=== PATIENT | male | born 1950 | race Caucasian/White ===

== ENCOUNTER 2017-09-22 18:27 | Emergency (ER) | payer MEDICARE ==
[2017-09-22 19:38] VITALS: BP 146/77
[2017-09-22] MEDS ORDERED: Lidocaine 2% PF * 5 ML VIAL INJ ONE (21:10)
[2017-09-22] MEDS ORDERED: Cephalexin CAP* 500 MG PO ONE (21:45)
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
== END 2017-09-22 22:19 | disposition home or self-care (01) ==
LOC: UCEAST 18:27
DX: S61.217A Laceration without foreign body of left little finger without damage to nail, initial encounter (principal); W29.8XXA Contact with other powered hand tools and household machinery, initial encounter; Y93.9 Activity, unspecified; Y92.9 Unspecified place or not applicable; F32.9 Major depressive disorder, single episode, unspecified; Z88.4 Allergy status to anesthetic agent; Z87.891 Personal history of nicotine dependence
CPT/HCPCS: 99212; A9270-GY; G0463

== ENCOUNTER 2017-10-03 07:04 | Emergency (ER) | payer MEDICARE ==
[2017-10-03 07:17] VITALS: BP 137/82
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
== END 2017-10-03 07:35 | disposition home or self-care (01) ==
LOC: UCEAST 07:04
DX: S61.217D Laceration without foreign body of left little finger without damage to nail, subsequent encounter (principal); W29.8XXD Contact with other powered hand tools and household machinery, subsequent encounter; R03.0 Elevated blood-pressure reading, without diagnosis of hypertension; Z88.4 Allergy status to anesthetic agent; Z87.891 Personal history of nicotine dependence
CPT/HCPCS: 99211; G0463

== ENCOUNTER 2020-03-29 05:58 | Observation (INO) ==
[~2020-03-29 05:58] MED LIST: Buffered Lidocaine 1% SYRIN 1 ml INTRADERM ONE; Lactated Ringers 1000 ml BAG 1,000 ML IV SCH
[2020-03-29] MEDS ORDERED: ceFAZolin 2 GM PREMIX 2 GM/50 ML BAG ONE (06:24)
[2020-03-29] MEDS ORDERED: Buffered Lidocaine 1% SYRIN 1 ml INTRADERM ONE (06:24)
[2020-03-29] MEDS ORDERED: Midazolam 2 mg/2 ml VIAL 1 mg/ml 2 ml VIAL (2 mg) ONE ×2 (06:55→07:31)
[2020-03-29] MEDS ORDERED: Phenylephrine 40 mcg/mL 10mL (400mcg) SYRINGE ONE (06:55)
[2020-03-29] MEDS ORDERED: Lidocaine 2% PF 5 ML VIAL ONE (06:55)
[2020-03-29] MEDS ORDERED: Bupivacaine 0.5% SDV PF 30ML VIAL ONE (07:19)
[2020-03-29] MEDS ORDERED: fentaNYL 100 mcg/2 ml 50 MCG/ML VIAL ONE (07:21)
[2020-03-29] MEDS ORDERED: Rocuronium 50 mg VIAL 10 mg/ml 5 ml VIAL (50 mg) ONE (07:27)
[2020-03-29] MEDS ORDERED: Naloxone 0.4 mg VIAL 0.4 mg/ml 1 ml VIAL IV PRN (08:29)
[2020-03-29] MEDS ORDERED: DiMENhydriNATE IV 50 mg/ml 1 ml VIAL IV PUSH PRN (08:29)
[2020-03-29] MEDS ORDERED: fentaNYL 100 mcg/2 ml 50 MCG/ML VIAL IV PRN (08:29)
[2020-03-29] MEDS ORDERED: oxyCODONE/Acetamin 5/325 mg TAB PO PRN (08:29)
[2020-03-29] MEDS ORDERED: HYDROmorphone 1 MG/1 ML SYRINGE IV PRN (08:29)
[2020-03-29] MEDS ORDERED: Ondansetron 4 mg VIAL 2 MG/ML 2 ml VIAL IV PRN ×2 (08:29→10:00)
[2020-03-29] MEDS ORDERED: Ondansetron 4 mg VIAL 2 MG/ML 2 ml VIAL ONE (09:12)
[2020-03-29] MEDS ORDERED: Acetaminophen IV 1 GM/100ML 100 ML ONE (09:12)
[2020-03-29] MEDS ORDERED: Dexamethasone IV 4 MG/ML VIAL 1 ml VIAL ONE ×2 (09:12)
[2020-03-29] MEDS ORDERED: diPHENhydraMINE 25 mg TAB PO PRN (10:00)
[2020-03-29] MEDS ORDERED: diPHENhydraMINE IV 50 MG/ML 1 ml VIAL (BENADRYL) IV PRN (10:00)
[2020-03-29] MEDS ORDERED: Morphine 2 MG/ML SYRINGE IV PRN (10:00)
[2020-03-29] MEDS ORDERED: Magnesium Hydroxide LIQ 30 ML UDC PO PRN (10:00)
[2020-03-29] MEDS ORDERED: Ondansetron ODT 4 mg TAB 4 MG TAB PO PRN (10:00)
[2020-03-29] MEDS ORDERED: Lactulose 30 ml UDC PO PRN (10:00)
[2020-03-29] MEDS ORDERED: oxyCODONE/Acetamin 5/325 mg TAB ONE (10:19)
[2020-03-29] MEDS: Lactated Ringers 1000 ml BAG 1,000 ML IV SCH ×2 (11:43→21:32)
[2020-03-29] MEDS: ceFAZolin 1 GM ADVAN 1 GM in NS 0.9% 50 ML 50 ML IVPB SCH ×2 (15:49→23:41)
[2020-03-29] MEDS: oxyCODONE/Acetamin 5/325 mg TAB PO PRN ×2 (16:55→21:29)
[2020-03-29] MEDS: Magnesium Hydroxide LIQ 30 ML UDC PO SCH (21:29)
[2020-03-30] MEDS: oxyCODONE/Acetamin 5/325 mg TAB PO PRN ×3 (03:17→12:01)
[2020-03-30 07:11] LABS: Hematocrit 37 % (42-52); Mean Platelet Volume 8.1 fL (7.4-10.4); Platelet Count 199 10^3/uL (150-450)
[2020-03-30 07:30] LABS: BUN/Creatinine Ratio 19.4 (8-20); Calcium 8.8 mg/dL (8.6-10.3); EGFR African American 86.9 (>60); EGFR Non-African American 71.8 (>60); Potassium 4.7 mmol/L (3.5-5.0)
[2020-03-30] MEDS: ceFAZolin 1 GM ADVAN 1 GM in NS 0.9% 50 ML 50 ML IVPB SCH (07:42)
[2020-03-30] MEDS: Magnesium Hydroxide LIQ 30 ML UDC PO SCH (08:30)
[2020-03-30] MEDS ORDERED: Vitamin THERAPEUTIC TAB PO SCH (09:00)
[2020-03-30 11:56] VITALS: BP 145/73
== END 2020-03-30 12:40 | disposition home or self-care (01) ==
LOC: OR 05:58 → OBSVTOIN 11:36 → INTOOBSV 11:36 → SSU 11:36
PROVIDERS: ADMIT Orthopaedic Surgery Adult Reconstructive Orthopaedic Surgery; ATTEND Internal Medicine